=== PATIENT | male | born 1940 | race Caucasian/White ===

== ENCOUNTER 2016-08-11 11:08 | Day surgery (SDC) | payer OTHER ==
[~2016-08-11] VITALS: Ht 182.9 cm; Wt 92.1 kg
[~2016-08-11 11:08] MED LIST: FLOMAX0.4 MG PO; LASIX80 MG PO; LIPITOR80 MG PO; LO-DOSE ASPIRIN81 M1 PO; PAIN RELIEVER325 MG PO; PLAVIX75 MG PO; PRESERVISION T1 EACH PO; PROAMATINE10 MG PO; TOPROL XL100 MG PO; ZYLOPRIM100 MG PO
[2016-08-11 12:10] LABS: HEMATOCRIT 39.9 % (38.0-50.0); MCHC 31.3 G/DL (30.0-36.0); MCV 95.9 FL (86-99); PLATELET COUNT 156 K/uL (156-360); RBC DIS.WIDTH-CV 15.9 % (11.8-14.6); RBC DIS.WIDTH-SD 55.9 % (39-53); RED BLOOD COUNT 4.16 M/uL (4.00-5.50); WHITE BLOOD COUNT 5.9 K/uL (4.1-10.2)
[2016-08-11 12:22] VITALS: BP 143/72
[2016-08-11 12:57] LABS: ANION GAP 10 MEQ/L (2-14); CHLORIDE 95 MEQ/L (99-109); GFR ESTIMATE (CALCULATED) 23 mL/min/; GLUCOSE 75 mg/dL (70-99); SAMPLE HEMOLYSIS CHECK 2; SAMPLE ICTERIC CHECK 0; SAMPLE LIPEMIA CHECK 0; SODIUM 138 MEQ/L (136-147); UREA NITROGEN (BUN) 74 mg/dL (9-23)
[2016-08-11 13:02] LABS: POTASSIUM ND MEQ/L (3.7-5.4)
[2016-08-11 13:22] LABS: METH RESISTANT S AUREUS PCR NEGATIVE (NEGATIVE)
[2016-08-11 13:23] LABS: PROBE CHECK PASS; SPECIMEN PROCESSING CONTROL PASS
[2016-08-11 13:31] LABS: POTASSIUM 4.6 mEq/L (3.7-5.4)
[2016-08-11 16:27] LABS: POINT-OF-CARE METER ID UU13113675; POINT-OF-CARE USER ID 515036437
[2016-08-11] MEDS ORDERED: NORCO 5/3251 TABLET PO (16:45)
[2016-08-11 17:18] VITALS: BP 100/58
[2016-08-11 18:37] VITALS: BP 86/52
== END 2016-08-11 19:00 | disposition home or self-care (01) ==
LOC: SDC 11:08
PROVIDERS: Physician Assistant; Surgery
DX: I12.0 Hypertensive chronic kidney disease with stage 5 chronic kidney disease or end stage renal disease (principal); E11.22 Type 2 diabetes mellitus with diabetic chronic kidney disease; N18.6 End stage renal disease; Z99.2 Dependence on renal dialysis; M10.9 Gout, unspecified; I25.10 Atherosclerotic heart disease of native coronary artery without angina pectoris; Z86.19 Personal history of other infectious and parasitic diseases; K27.9 Peptic ulcer, site unspecified, unspecified as acute or chronic, without hemorrhage or perforation; J44.9 Chronic obstructive pulmonary disease, unspecified; Z86.718 Personal history of other venous thrombosis and embolism; Z95.5 Presence of coronary angioplasty implant and graft; Z96.651 Presence of right artificial knee joint; Z95.828 Presence of other vascular implants and grafts; Z79.82 Long term (current) use of aspirin; Z79.02 Long term (current) use of antithrombotics/antiplatelets; Z80.42 Family history of malignant neoplasm of prostate; Z82.49 Family history of ischemic heart disease and other diseases of the circulatory system; Z82.0 Family history of epilepsy and other diseases of the nervous system; Z83.3 Family history of diabetes mellitus; Z82.3 Family history of stroke
CPT/HCPCS: 80048; 82948; 84999; 85027; 87641; J0690; J1644; J2250; J2405; J2720; J2765; J3010

== ENCOUNTER → 2016-10-13 | Outpatient (CLI) | payer OTHER ==
[~2016-10-13] MED LIST changes: +NORCO 5/3251 TABLET PO
== END | disposition home or self-care (01) ==
LOC: AMB 07:47
PROC: 0JPT0XZ Removal of Tunneled Vascular Access Device from Trunk Subcutaneous Tissue and Fascia, Open Approach (ICD-10-PCS; principal; 2016-10-13)
DX: N18.6 End stage renal disease (principal); Z99.2 Dependence on renal dialysis